=== PATIENT | female | born 1980 | race Caucasian/White ===

== ENCOUNTER 2024-05-04 11:55 | Emergency (ER) | payer OTHER, SELFPAY ==
[2024-05-04 12:22] VITALS: BP 140/98
--- NOTE | 2024-05-04 12:25 | ED.GENMED ---
ED Provider Triage
<Kelvin Negrete PA-C - Last Filed: 05/05/24 07:09>
-
Patient seen by provider in Triage?: Seen in Triage
43 yo female presents for evaluation of R knee pain and swelling ongoing for several weeks. Also L shoulder pain, states she felt a pop in the L pectoral region while leaning back, no awakens with severe L shoulder pain, worse with any movement of
the L arm. No CP, SOB, fevers or chills.
Check XR of the R knee and L shoulder
History of Present Illness
<Kelvin Negrete PA-C - Last Filed: 05/05/24 07:09>
General
Chief Complaint: Musculo-Skeletal Complaint
Time Seen by Provider: 05/04/24 14:18
<Katrina Juarez MD - Last Filed: 05/04/24 14:45>
General
Source: patient
History of Present Illness
History of Present Illness:
This patient is a 43-year-old female presents emergency department with several complaints. She reports a rash that started about 3 weeks ago, saw house calls nurse practitioner and was diagnosed with psoriasis. She has been applying the steroid cream as
indicated, and states that the rash is becoming more extensive and more itchy and sometimes feels like it is 'burning'. She is unable to see the house calls nurse practitioner until June. She also notes left shoulder pain that is been going on for at least a
month. She states she leaned back and felt a 'pop', and since then she has pain in the left shoulder with certain movements. She denies numbness or tingling, or specific fall. Lastly, she notes pain in the right knee. This is particularly with
standing or walking. She thinks maybe she twisted it but denies any specific impact or fall. She denies numbness, tingling, redness, warmth, fever, chills, chest pain, shortness of breath, abdominal pain, or other complaints.
Past History
<Kelvin Negrete PA-C - Last Filed: 05/05/24 07:09>
Past History
ED Past Medical History: Other (ADHD, chronic UTIs)
ED Past Surgical History:
Social History
Tobacco: Smoker
Living: with family
Family History
Family History: Unable to obtain
<Katrina Juarez MD - Last Filed: 05/04/24 14:45>
Past History
ED Past Medical History: HTN and Hypercholesterolemia
Social History
Alcohol: Occasional
Drug: None
Personal: Other (Engage)
Employment: Employed
Phy Exam
<Katrina Juarez MD - Last Filed: 05/04/24 14:45>
Physical Exam
Physical Exam:
GENERAL: Alert , in no apparent distress
NECK: Supple, no significant adenopathy.
ENT: o/p clr, mmm.
CARDIAC: Regular rate and rhythm .
LUNGS: Clear breath sounds bilaterally, no acute respiratory distress, no wheezes/rales/rhonchi
ABDOMEN: Soft, without focal tenderness, no r/g, no cvat
NEUROLOGICAL: Alert and oriented, no focal neuro deficits
SKIN: Warm and dry, skin intact. There is a psoriatic appearing rash noted back, extrem, no active drainage/streaking/ulcerations/blistering.
MUSCULOSKELETAL: No edema, well perfused. R knee without nonspec gen ttp, small effusion, no redness/warmth, FROM, no laxity. L shoulder with mild ttp ant shoulder area, pain with abduction and ext rotation, nvit.
PSYCH: Normal and appropriate interaction.
Course
<Kelvin Negrete PA-C - Last Filed: 05/05/24 07:09>
Orders/Labs/Results
Orders:
Orders
05/04/24 12:24
CR Knee- Right 4 Or More View* Urgent
Comment:
Reason For Exam: pain/swelling
CR Shoulder - Left Min 2 View* Urgent
Comment:
Reason For Exam: pain
05/04/24 14:44
Prednisone [Deltasone] 50 mg PO NOW STA
Vital Signs
Initial and Last Documented VS:
Initial Vital Signs
Temp Pulse Resp BP Pulse Ox
98 F 105 20 140/98 100
05/04/24 12:22 05/04/24 12:22 05/04/24 12:22 05/04/24 12:22 05/04/24 12:22
Last Documented Vital Signs
Temp Pulse Resp BP Pulse Ox
98 F 107 18 141/89 100
05/04/24 12:22 05/04/24 14:55 05/04/24 14:55 05/04/24 14:55 05/04/24 12:22
<Katrina Juarez MD - Last Filed: 05/04/24 14:45>
Orders/Labs/Results
Orders:
Orders
05/04/24 12:24
CR Knee- Right 4 Or More View* Urgent
Comment:
Reason For Exam: pain/swelling
CR Shoulder - Left Min 2 View* Urgent
Comment:
Reason For Exam: pain
05/04/24 14:44
Prednisone [Deltasone] 50 mg PO NOW STA
Vital Signs
Initial and Last Documented VS:
Initial Vital Signs
Temp Pulse Resp BP Pulse Ox
98 F 105 20 140/98 100
05/04/24 12:22 05/04/24 12:22 05/04/24 12:22 05/04/24 12:22 05/04/24 12:22
Last Documented Vital Signs
Temp Pulse Resp BP Pulse Ox
98 F 107 18 141/89 100
05/04/24 12:22 05/04/24 14:55 05/04/24 14:55 05/04/24 14:55 05/04/24 12:22
<Kelvin Negrete PA-C - Last Filed: 05/05/24 07:09>
*Critical Care Note
Total Time (30-74mins, 75-104mins- exclusive of procedures): Not Applicable
<Katrina Juarez MD - Last Filed: 05/04/24 14:45>
Update Note
Update Note:
Patient presents to the Emergency Department with ___knee pain, shoulder pain, rash
Number and Complexity of Problems Addressed at the Encounter
� Chronic conditions affecting care:
� Acute Exacerbation and/or Progression of Chronic Illness:
� Differential Diagnosis includes: But not limited to bursitis, tendinitis, psoriatic arthritis, etc. etc. etc.
Amount and/or Complexity of Data to be Reviewed and Analyzed
� I performed an independent evaluation of and my interpretation is:
EKG:
CT:
Xrays:
Laboratory Studies:
Other:
� Review of other/old records reveals:
� Clinical information was obtained by an independent historian:
� Prescriptions/Medications Considered but not given:
� Further testing considered but not performed:
Risk of Complications and/or Morbidity or Mortality of Patient Management
� Social determinants of health affecting care:
� Discussion with other providers (PCP, Hospitalists, Consultants, etc):
� Escalation of care including admission/observation vs risk of discharge considered: Patient will be provided with a knee immobilizer given her knee discomfort. Low clinical suspicion for septic arthritis. Will transition
patient from steroid cream to p.o. steroid taper with recommendations for close follow-up.
ED Attending Note
<Kelvin Negrete PA-C - Last Filed: 05/05/24 07:09>
-
Portions of this chart may have been created with voice recognition software.� Occasional wrong word or��sound alike� substitutions may have occurred due to the inherent limitations of voice recognition software.
Discharge Plan
Departure
Patient Disposition: Home (Routine Discharge)
Date of Disposition: 05/04/24
Time of Disposition: 14:41
Patient with high blood pressure during this ER visit?: Yes
Discharge Problem:
Psoriasis, Acute knee pain, Acute shoulder pain
Instructions: Knee Immobilizer (DC), BLOOD PRESSURE
Prescriptions:
New
prednisone 10 mg tablet
10 mg PO DIRECTED Qty: 30 0RF
Rx Instructions:
50MG PO QDx2D, THEN 40G QDx2d, THEN 30 MG QDx2D, THEN 20MG qdX2D, THEN 10MG QDx2D, THEN D/C
No Action
dextroamphetamine-amphetamine [Adderall] 10 MG tablet
10 mg PO 1230
atorvastatin 10 MG tablet
10 mg PO HS
amlodipine 5 MG tablet
5 mg PO HS
dextroamphetamine-amphetamine [Adderall] 20 MG tablet
20 mg PO DAILY
metoprolol tartrate 50 MG tablet
50 mg PO HS
Referrals:
Patricia Moore, DO [Active] - Next open appointment
Activity Restrictions/Additional Instructions:
IF YOU DEVELOP INCREASING/NEW/PERSISTENT PAIN, ANY FEVER, REDNESS, WARMTH, TROUBLE BREATHING, CHEST PAIN, OR OTHER WORRISOME SIGNS, GO TO THE ER IMMEDIATELY!
Interventions
Interventions:
*Risk Screen - Suicide Last Done: 05/04/24 12:22
*General Assessment Last Done: 05/04/24 12:22
*Neglect/Abuse Screening Last Done: 05/04/24 12:22
*Nursing Disposition Last Done: 05/04/24 14:56
ED-Musculoskeletal Assessment Last Done: 05/04/24 13:45
Discharge Date and Time
Discharge Date/Time: 05/04/24 14:59
Print Language: MONTSERRATIAN
[2024-05-04] MEDS: DELTASONE 50 MG PO (14:53)
[2024-05-04 14:55] VITALS: BP 141/89
== END 2024-05-04 14:59 | disposition home or self-care (01) ==
LOC: EMR 11:55
PROVIDERS: EMERGENCY PHYSICIAN Emergency Medicine; FAMILY PHYSICIAN Obstetrics & Gynecology
DX: L40.9 Psoriasis, unspecified (principal); M25.512 Pain in left shoulder; M25.561 Pain in right knee; E78.00 Pure hypercholesterolemia, unspecified; I10 Essential (primary) hypertension; F17.200 Nicotine dependence, unspecified, uncomplicated
CPT/HCPCS: 99284; 29505; 73030; 73564